=== PATIENT | female | born 1975 | race Caucasian/White ===

== ENCOUNTER → 2018-02-09 | Outpatient (CLI) | payer BC ==
--- NOTE | ~2018-02-09 | 2DMMODE ---
[facility] [place] [address] 2 D/M-MODE ECHOCARDIOGRAM Name: CLARISSE GARCIA Room #: REG [facility]#: [id number] Admission: 02/09/18 Attend Phys: Joshua Mendoza MD Discharge: Date of : 79 Date of Service: 02/09/18 1531 Report #: [id number] THIS REPORT FOR: //name// APPROVED REPORT Study performed: 02/09/2018 13:22:45 EXAM: Comprehensive 2D, Doppler, and color-flow Echocardiogram Patient Location: Out-Patient Status: routine BSA: 2.38 HR: 72 bpm BP: 138/78 mmHg Rhythm: NSR Other Information Study Quality: Good Indications Palpitations, Mumur. 2D Dimensions RVDd: 32.08 mm IVSd: 9.30 (7-11mm) LVOT Diam: 20.56 (18-24mm) LVDd: 46.01 mm PWd: 9.57 (7-11mm) Ascending Ao: 28.09 (22-36mm) LVDs: 31.21 (25-40mm) Aortic Root: 31.50 mm Volumes Left Atrial Volume (Systole) Single Plane 4CH: 60.84 mL Single Plane 2CH: 59.55 mL LA ESV Index: 27.00 mL/m2 Aortic Valve AoV Peak Wale.: 1.69 m/s AO Peak Gr.: 12.89 mmHg LVOT Max P.48 mmHg LVOT Max V: 1.62 m/s CYNDI Vmax: 3.19 cm2 Mitral Valve E/A Ratio: 1.4 MV Decel. Time: 255.67 ms MV E Max Wale.: 1.13 m/s [facility] [place] [address] [place] [address] 2 D/M-MODE ECHOCARDIOGRAM Name: CLARISSE GARCIA Room #: REG [facility]#: [id number] Admission: 02/09/18 Attend Phys: Joshua Mendoza MD Discharge: Date of : 79 Date of Service: 02/09/18 1531 Report #: [id number] MV A Wale.: 0.81 m/s MV PHT: 74.15 ms IVRT: 65.74 ms Pulmonary Valve PV Peak Wale.: 1.09 m/s PV Peak Gr.: 4.75 mmHg Pulmonary Vein P Vein S: 0.61 m/s P Vein A: 0.27 m/s P Vein D: 0.53 m/s P Vein A Dur.: 93.4 msec P Vein S/D Ratio: 1.15 Tricuspid Valve TR Peak Wale.: 2.17 m/s RAP Estimate: 5.00 mmHg TR Peak Gr.: 18.76 mmHg PA Pressure: 24.00 mmHg Left Ventricle The left ventricle is normal size. There is normal LV segmental wall motion. There is normal left ventricular wall thickness. Left ventricular systolic function is normal. LVEF is 60-65%. The left ventricular diastolic function is normal. Right Ventricle The right ventricle is normal size. The right ventricular systolic function is normal. Atria The left atrium size is normal. The right atrium size is normal. Aortic Valve The aortic valve is normal in structure. No aortic regurgitation is present. There is no aortic valvular stenosis. Mitral Valve The mitral valve is normal in structure. There is no mitral valve regurgitation noted. No evidence of mitral valve stenosis. Tricuspid Valve The tricuspid valve is normal in structure. Trace to mild tricuspid regurgitation. Estimated PAP is 25mmHg. Pulmonic Valve The pulmonary valve is normal in structure. There is no pulmonic valvular regurgitation. [address] [address] 2 D/M-MODE ECHOCARDIOGRAM Name: LOY GARCIAAyo BEDOLLAE Room #: REG CL [facility]#: [id number] Admission: 02/09/18 Attend Phys: Joshua Mendoza MD Discharge: Date of : 79 Date of Service: 02/09/18 1531 Report #: [id number] Great Vessels The aortic root is normal in size. The ascending aorta is normal in size. IVC is normal in size and collapses >50% with inspiration. Pericardium There is no pericardial effusion. <Conclusion> The left ventricle is normal size. There is normal left ventricular wall thickness. Left ventricular systolic function is normal. The left ventricular diastolic function is normal. The right ventricle is normal size. The left atrium size is normal. The aortic valve is normal in structure. There is no mitral valve regurgitation noted. Trace to mild tricuspid regurgitation. Estimated PAP is 25mmHg. <ELECTRONICALLY SIGNED> By: Joshua Mendoza MD 02/09/18 [phone] Joshua Mendoza MD /INF
--- NOTE | ~2018-02-09 | EXE ---
[facility] [employer] [place] [address] STRESS ECHOCARDIOGRAM Name: CLARISSE GARCIA Room #: REG [facility]#: [id number] Admission: 02/09/18 Attend Phys: Joshua Mendoza MD Discharge: Date of : 79 Date of Service: 02/09/18 1534 Report #: [id number] THIS REPORT FOR: //name// APPROVED REPORT Study performed: 02/09/2018 13:55:27 Exam: Stress Echocardiogram Indication: Palpitations, murmur Patient Location: Out-Patient Stress Nurse: Frieda Gutierrez RN Status: routine Ht: 5 ft 8 in HR: 70 bpm BP: 138/78 mmHg Rhythm: NSR Medical History Allergies: No known drug allergies Cardiac Risk Factors: Pre diabetic, pre HTN, pre-HLP, morbid obesity Procedure The patient underwent an Exercise Stress Test using the Kd Protocol. Blood pressure, heart rate, and EKG were monitored. An Echocardiogram was performed by photo technician in four stages in quad fashion. At peak stress, four selected images were obtained and placed side by side with resting images for comparison. Stress Test Details Stress Test: Exercise stress testing was performed using a Kd protocol. HR Resting HR: 70 bpm Max Heart Rate (APMHR): 180 bpm Max HR Achieved: 171 bpm Target HR (85% APMHR): 153 bpm % of APMHR: 95 Recovery HR: 97 bpm HR response to stress: Normal HR response to stress BP Resting BP: 138/78 mmHg Max BP: 210/90 mmHg Recovery BP: 170/84 mmHg ECG [facility] [address] [place] [address] STRESS ECHOCARDIOGRAM Name: CLARISSE GARCIA MARSH Room #: REG CL [facility]#: [id number] Admission: 02/09/18 Attend Phys: Joshua Mendoza MD Discharge: Date of : 79 Date of Service: 02/09/18 1534 Report #: [id number] Resting ECG: Sinus Rhythm Stress ECG: Sinus Rhythm ST Change: Non-ischemic Clinical Reason for Termination: Moderate to severe dyspnea Stress Symptoms: Dyspnea Exercise duration: 8 min 18 sec Highest Stage Achieved: Stage 3: 3.4 mph at 14% grade. Exercise capacity: 10.40 METs Pre-Stress Echo The resting Echocardiogram showed normal left ventricular contractility with an estimated Ejection Fraction of about 60-65%. Normal wall motion in all segments on baseline images. Post-Stress Echo The stress Echocardiogram showed normal left ventricular contractility with an estimated Ejection Fraction of about 65-70%. Normal augmentation of wall motion in all segments on post stress images. Clinical No clinical or ECG evidence for ischemia. Conclusion Clinical Response: Non-ischemic Exercise Capacity: Average Stress ECG Response: Non-ischemic Stress Echo Images: Non-ischemic The left ventricle is normal in size and wall thickness in both the rest and stress images. Other Information Study Quality: Good <Conclusion> The left ventricle is normal in size and wall thickness in both the rest and stress images. <ELECTRONICALLY SIGNED> By: Joshua Mendoza MD 02/09/18 1534 1534 1534 Joshua Mendoza MD /INF
== END ==
LOC: CV 02-07 07:27
DX: R01.1 Cardiac murmur, unspecified (principal); R00.2 Palpitations